=== PATIENT | female | born 1950 | race Caucasian/White ===

== ENCOUNTER 2020-01-04 17:07 | Outpatient (CLI) | payer MEDICARE, SELFPAY ==
--- NOTE | ~2020-01-04 | MM_ITS ---
EXAMINATION: MM screening tomy BI w chayo HISTORY: Screening mammogram, family history of breast cancer in her sister. History of right breast excisional biopsies TECHNIQUE: Craniocaudal and mediolateral oblique 3-D tomosynthesis images were obtained and synthetic 2-D images were generated. CAD analysis was submitted and interpreted. COMPARISON: 05/28/2016, 11/13/2013, 12/19/2012 BREAST PARENCHYMAL COMPOSITION: The breasts are heterogeneously dense, which may obscure small masses . FINDINGS: There is no evidence of suspicious mass, calcification, or architectural distortion to sugg est malignancy in either breast. There has been no suspicious interval change. IMPRESSION: 1. No mammographic evidence of malignancy. 2. Recommend routine screening mammography in one year. BI-RADS Category 1: Negative Reviewed, dictated and finalized at location A. ER UTILITY WORKER
== END 2020-01-04 17:08 | disposition home or self-care (01) ==
LOC: ANHIMG 17:15
PROVIDERS: PCP Internal Medicine; Visit Provider Obstetrics & Gynecology
DX: Z12.31 Encounter for screening mammogram for malignant neoplasm of breast (principal)
CPT/HCPCS: 77063; 77067

== ENCOUNTER 2020-05-27 20:15 | Observation (INO) | payer MEDICARE, SELFPAY ==
--- NOTE | ~2020-05-27 | XR_ITS ---
EXAMINATION: XR chest 1V DATE: 05/27/2020 22:35 INDICATION: Left arm tingling and numbness. TECHNIQUE: A single frontal view of the chest was obtained. COMPARISON: Chest 2 views 02/10/2015 FINDINGS: A calcified right lung nodule and calcified right hilar lymph nodes are consistent with old granulomatous disease. There is mild atelectasis at left lung base. No pleural effusion or pneumotho rax. The heart size is normal. IMPRESSION: 1. Mild atelectasis at left lung base. Reviewed, dictated and finalized at location A.
--- NOTE | ~2020-05-27 | CT_ITS ---
EXAMINATION: CT brain wo con DATE: 05/28/2020 00:37 INDICATION: Left arm tingling. Visual changes. Neck pain. TECHNIQUE: Computed tomography (CT) of the head was performed without intravenous contrast. Sagittal and coronal reconstructions were performed. The mA was adjusted according to patient size. Iterative reconstruction technique was employed. The dose-length product was 605.33 mGy-cm. COMPARISON: head CT dated 09/03/2006 FINDINGS: No acute intracranial hemorrhage, acute infarction or abnormal extra axial fluid collection. Ventricl es are normal and symmetric. No mass/mass effect. The orbits, paranasal sinuses and mastoid air cells are normal. IMPRESSION: 1. No acute intracranial process. Reviewed, dictated and finalized at location A.
--- NOTE | ~2020-05-27 | MR_ITS ---
EXAMINATION: MR brain/brain stem wo/w con DATE: 05/28/2020 16:33 INDICATION: Transient ischemic attack. Neck pain. Left arm tingling. TECHNIQUE: Magnetic resonance imaging (MRI) of the brain and brainstem was performed without and with 12 mL MultiHance intravenous contrast. Sequences included sagittal and axial T1-weighted FSE, axial diffusion-weighted FS EPI, axial T2*-weighted GRE, axial T2-weighted FLAIR Propeller, and axial T2-we ighted Propeller. Postcontrast sequences included axial and coronal T1-weighted FSE. Apparent diffusi on coefficient (ADC) maps were created. COMPARISON: Head CT 05/28/2020 FINDINGS: There is no intracranial hemorrhage, acute infarction, or abnormal intracranial mass lesion . The ventricles are normal in size. The paranasal sinuses are clear. The orbits are normal. The mast oid air cells are normal. IMPRESSION: 1. Normal brain. Reviewed, dictated and finalized at location A. IMPRESSION: 1. Normal brain.
--- NOTE | ~2020-05-27 | US_ITS ---
EXAMINATION: US carotid duplex BI DATE: 05/28/2020 16:52 INDICATION: Carotid bruit. TECHNIQUE: Grayscale, color Doppler, and pulsed Doppler images of the cervical carotid arteries were obtained. The degree of vessel stenosis is placed in one of the following categories: normal, <50%, 5 0-69%, >=70% but less than near-occlusion, near-occlusion, or total occlusion. Note that percent sten osis relative to normal distal artery lumen diameter is indirectly measured from velocity measurement s as described by Booker, et al. Radiology 2003; 229:340-346. COMPARISON: None. FINDINGS: RIGHT: The right common carotid artery (CCA) peak systolic velocity (PSV) is 75 cm/s. The right internal car otid artery (ICA) PSV is 85 cm/s. The right ICA end-diastolic velocity (EDV) is 27 cm/s. The right IC A/CCA PSV ratio is 1.1. Grayscale and color Doppler images yield an estimate of <50% diameter reducti on from plaque in the ICA. There is antegrade flow in the right vertebral artery. LEFT: The left CCA PSV is 78 cm/s. The left ICA PSV is 92 cm/s. The left ICA EDV is 26 cm/s. The left ICA/C CA PSV ratio is 1.2. Grayscale and color Doppler images yield an estimate of <50% diameter reduction from plaque in the ICA. There is antegrade flow in the left vertebral artery. IMPRESSION: 1. <50% stenosis in the right internal carotid artery. 2. <50% stenosis in the left internal carotid artery. Reviewed, dictated and finalized at location A.
[2020-05-27 20:51] VITALS: BP 187/73; PULSE 58; RESP 18; TEMP 37.1; O2SAT 98
--- NOTE | 2020-05-27 20:57 | ECG_ITS ---
Measurements Intervals [place] Rate: 55 P: 69 RI: 160 QRS: 16 QRSD: 96 T: 47 QT: 430 QTc: 413 Interpretive Statements SINUS BRADYCARDIA RSR' IN V1 OR V2, CONSIDER RIGHT VENTRICULAR HYPERTROPHY OR RIGHT VCD BASELINE ARTIFACT- I, III, AVR, AVL BORDERLINE ECG Electronically Signed On 05-28-2020 7:02:41 CDT by Jensen Baldwin D.O.
[2020-05-27 21:15] LABS: Basophils Absolute Auto 0.1 K/mm3 (0.0-0.1); Basophils Percent Auto 0.7 % (0.2-1.2); Eosinophils Absolute Auto 0.3 K/mm3 (0-0.3); Eosinophils Percent Auto 4.2 % (0-4.4); Hematocrit 36.3 % (37.0-47.0); Hemoglobin 11.9 g/dL (12.0-15.0); Immature Granulocyte Absolute 0.01 K/mm3 (0.00-0.031); Immature Granulocyte Percent A 0.1 % (0-0.5); Lymphocytes Absolute Auto 2.18 K/mm3 (0.9-3.2); Lymphocytes Percent Auto 32.3 % (18.3-44.2); Mean Corpuscular HGB Conc 32.8 g/dl (32-36); Mean Corpuscular Hemoglobin 31.7 pg (26-34); Mean Corpuscular Volume 96.8 fl (80-100); Mean Platelet Volume 9.9 fl (7.4-10.4); Monocytes Absolute Auto 0.4 K/mm3 (0.1-0.6); Monocytes Percent Auto 5.6 % (2.6-8.5); Neutrophils Absolute Auto 3.8 K/mm3 (1.3-6.7); Neutrophils Percent Auto 57.1 % (45.5-73.1); Platelet Count Result 214 k/mm3 (150-375); Red Blood Count 3.75 M/mm3 (4.2-5.4); Red Cell Distribution Width 12.4 % (11.5-14.5); White Blood Count 6.7 K/mm3 (4.5-10.0)
[2020-05-27 21:24] LABS: INR 0.9; Partial Thromboplastin Time 26.8 SECONDS (22.3-36.8); Prothrombin Time 12.1 Seconds (11.1-14.7)
[2020-05-27 21:26] LABS: Blood Urea Nitrogen 23 mg/dL (7-17); Calcium 8.9 mg/dL (8.4-10.2); Carbon Dioxide 26 mmol/L (22-30); Chloride 104 mmol/L (98-107); Estimated Glomerular Filt Rate > 60; Glucose 125 mg/dL (65-105); Potassium 3.6 mmol/L (3.4-5.0); Sodium 137 mmol/L (137-145)
[2020-05-27 21:38] LABS: Troponin I < 0.012 ng/mL (0.000-0.034)
--- NOTE | 2020-05-27 23:38 | ED.NEUROSD ---
HPI - Neuro Symptoms/Deficit General Chief Complaint: Neuro Symptoms/Deficit Stated Complaint: cva? 2-3 days ago Time Seen by Provider: 05/27/20 23:23 Source: patient Mode of arrival: ambulatory Limitations: no limitations History of Present Illness HPI Narrative: This patient is a 69 year old [place] female who presents for evaluation of left arm tingling. Patient states 2 days ago she had an episode in which she states her vision went black and she felt like she was going to pass out. She also reports she had neck pain and left arm tingling. She reports she has no symptoms now, but She will intermittently get left arm tingling. She denies focal weakness, chest pain, sob or dizziness. Today she was evaluated by some one from her insurance company who told her she had carotid bruits and peripheral vascular disease, so her PCP recommended she come to ER. She denies history of heart disease or stroke in the past. Onset (ago): day(s) (2) Related Data Allergies Allergy/AdvReac Type Severity Reaction Status Date / Time iodine Allergy Unknown Verified 06/28/15 11:05 Review of Systems Review of Systems: All systems reviewed & are unremarkable except as noted in HPI and below Constitutional: Constitutional: Denies chills and Denies fever(s) Eyes: Eyes: Reports change in vision and Reports loss of vision Cardiovascular: Cardiovascular: Denies chest pain and Denies rapid heart rate Respiratory: Respiratory: Denies cough, Denies dyspnea and Denies wheezing Gastrointestinal: Gastrointestinal: Denies abdominal pain, Denies diarrhea, Denies nausea and Denies vomiting Neurologic: Reports numbness (left arm tingling) PMFSH Past Medical History Medical History (Updated 05/28/20 @ 05:48 by Talisha Anglin MD) Anxiety Hyperlipidemia Hypertension Surgical History Surgical History (Updated 05/27/20 @ 23:40 by Talisha Anglin MD) Hx of eye surgery Family History Family History (Updated 05/28/20 @ 03:24 by Mindi Diaz RN) Other Unknown family medical history Social History Social History Smoking status: Never smoker Alcohol intake: current Drinks per week: 7 Substance use: never Gender identity (if verbalized by the patient): Female Spiritual care concerns: No Exam Const: General: no acute distress and alert Orientation/consciousness: patient oriented x3 HENMT: Head: normocephalic and atraumatic Face and sinus: sinuses nontender and face symmetric Mouth: Yes Normal oral and palatal mucosa present, Yes lip normal and Yes oropharynx normal Throat: posterior oropharynx normal, tonsils normal and uvula midline Eyes: Pupils: Equal, round and reactive pupils present EOM: EOMs intact bilaterally Neck: Neck: no lymphadenopathy Other: bilateral carotid bruits Resp: Effort & Inspection: normal respiratory effort and no retractions Auscultation: clear to auscultation bilaterally Cardio: Rate: regular rate Rhythm: regular rhythm Heart sounds: no murmurs GI: GI Palp: Yes Soft to palpation, No Tenderness to palpation present (GI), No Guarding due to palpation present (GI) and No Rigid due to palpation : General: Yes no CVA tenderness Skin: General skin exam: normal color Rashes: no rashes Neuro: General: patient oriented x3, moves all extremities, no meningeal signs, no focal motor deficits and CN's II-XI intact bilaterally Speech: normal speech Extrem: General: no pedal edema Course Reevaluation(s) Reevaluation #1: Patient understands she will be admitted for further evaluation. Date: 05/28/20 Time: 01:50 Consultations Consultation #1: Dr. ramos accepts patient to tele for evaluation of symptoms. She request patient be given full dose aspirin Date: 05/28/20 Time: 01:50 Vital Signs Vital signs: Vital Signs Temperature 98.7 F 05/27/20 20:51 Pulse Rate 58 L 05/27/20 20:51 Respiratory Rate 18 05/27/20 20:51 Blood Pressure 187/73 H 05/27/20 20:51 Pulse O
[2020-05-27 23:42] LABS: Glucose Point of Care 107 (65-105)
[2020-05-28] VITALS (12 sets, daily range): BP systolic 130–188; BP diastolic 49–87; PULSE 52–76; RESP 18; TEMP 36.3–36.8; O2SAT 98–100; BMI 25.6
--- NOTE | 2020-05-28 00:18 | PC.NURSE ---
Pt to CT at this time.
[2020-05-28] MEDS: ASPIRIN 81 MG CHEWABLE TABLET 324 MG PO (02:24)
--- NOTE | 2020-05-28 02:59 | ADMGEN ---
This patient, Cecelia Peña, was admitted to [facility] Surg Room 306-01. Patient/family oriented to hospital policies and general routines including ID bracelet, bed and alarms, visiting hours, pain management, procedures, bathroom and other care routines, personal items, smoking policy, room service/diet, and visiting hours. Valuables list has been completed. Information on how to activate the Rapid Response Team has been discussed. Patient/Family are encouraged to report perceived risks to care and to ask questions if they do not understand what they are told or what they should do.
[2020-05-28 09:14] LABS: Glucose Point of Care 92 (65-105)
[2020-05-28] MEDS: estradioL 1 MG TABLET PO (10:54)
[2020-05-28] MEDS: METOPROLOL TARTRATE 50 MG TAB PO (10:54)
[2020-05-28] MEDS: ATORVASTATIN 10 MG TABLET PO (10:55)
[2020-05-28] MEDS: LORazepam 0.5 MG TABLET PO (10:59)
--- NOTE | 2020-05-28 13:14 | PM.IMHP ---
H&P: HPI History of Present Illness Chief complaint: Left arm numbness Narrative: Date of Service 05/28/20 1230 The supervising physician for this history and physical is Dr Marques. Ms. Peña is a 69yo F with history of hypertension, hyperlipidemia, GERD, and anxiety presented to the ED at the instruction of a home health nurse due to multiple vague symptoms. Patient reports a recent near syncopal episode 2 days ago where she felt lightheaded but did not pass out. She also describes her left arm feeling heavy intermittently over the last few days, resolved at this time. She describes that a healthcare provider from their insurance company came to the house for wellness checks and given the symptoms above, directed her to proceed to the ED when he auscultated a bruit over her carotid artery. Patient tells me she feels okay today, but feels overwhelmed, anxious, and weak. She reports feeling nauseous this morning when she got up to walk but this resolved when she sat down to rest, no vomiting. She has a hard time describing what sounds to be palpitations, intermittent and she has noticed them for years and was evaluated with Holter monitor last year. She denies any chest pain, shortness of breath, cough, fevers or chills, sick contacts at home, or recent travel. She denies headache, speech change, difficulty ambulating. She is able to move her left arm spontaneously without difficulty. CT brain on arrival shows acute intracranial findings. She is admitted to observation for rule out CVA with orders for MRI brain, carotid Doppler, and neurology consultation. Review of Systems Review of Systems: Narrative: Twelve systems were reviewed with pertinent positives and negatives as per HPI. Except as documented, all other systems were reviewed and are negative. [facility] Past Medical History Medical History (Updated 05/28/20 @ 16:55 by Alma Ramon PA-C) Anxiety Bradycardia GERD (gastroesophageal reflux disease) Hyperlipidemia Hypertension Overactive bladder Surgical History Surgical History (Updated 05/28/20 @ 16:34 by Alma Ramon PA-C) H/O breast biopsy X3; 2013. Patient reports was benign. H/O: hysterectomy In her 20s H/O: knee surgery Left torn ACL repair 2017 History of appendectomy Around age 16 Hx of eye surgery Eyelid surgery 01/2020; patient cannot recall the name but notes that was not for cosmetic purposes, by what she describes may have been entropion vs ectropion correction? Family History Family History (Updated 05/28/20 @ 16:35 by Alma Ramon PA-C) Mother Diabetes mellitus CHF (congestive heart failure) Cancer Bone cancer Sibling Breast cancer Sister Other Unknown family medical history Social History Social History (Updated 05/28/20 @ 16:37 by Alma Ramon PA-C) Social History: Ms. Peña lives at home with her , Manas, in [place]. 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 She reports 5 drinks per week, usually wine. She reports never smoker. Denies other substance use. Her PCP is Dr Jeffries. Full code status. Smoking status: Never smoker Alcohol intake: current Drinks per week: 7 Substance use: never Gender identity (if verbalized by the patient): Female Spiritual care concerns: No Meds Home Medications and Allergies Home Medications Medication Instructions Recorded Confirmed Type aspirin [Adult Low Dose Aspirin] 81 mg PO DAILY 05/28/20 05/28/20 History atorvastatin 10 mg PO DAILY 05/28/20 05/28/20 History estradiol 1 mg PO DAILY 05/28/20 05/28/20 History lorazepam 0.5 mg PO Q8H PRN 05/28/20 05/28/20 History meloxicam 15 mg PO DAILY 05/28/20 05/28/20 History metoprolol tartrate 50 mg PO BID 05/28/20 05/28/20 History omeprazole 20 mg PO DAILY 05/28/20 05/28/20 History oxybutynin chloride 5 mg PO TID 05/28/20 05/28/20 History Allergies Allergy/AdvReac Type Severity Reaction Status Date / Time iodine All
[2020-05-28] MEDS: OXYBUTYNIN CHLORIDE 5 MG TABLET PO ×2 (13:35→17:44)
--- NOTE | 2020-05-28 16:25 | CONS_ITS ---
DATE OF CONSULTATION: HISTORY OF PRESENT ILLNESS: This 69-year-old lady has been admitted to [facility] through the emergency room for the complaint of tingling sensation in the left upper extremity of 48 hours duration in addition to the history of impending passing out and also neck pain. She gave no history of focal weakness otherwise. She was examined by the [facility] personnel, who told her that she has a carotid bruit and peripheral vascular disease, and she came to the emergency room. ALLERGIES: SHE IS ALLERGIC TO IODINE. PAST MEDICAL HISTORY: She has ongoing history of hyperlipidemia, hypertension, anxiety, history of eye surgery. SOCIAL HISTORY: She is a never smoker. Current drinker, 7 drinks per week. PHYSICAL EXAMINATION: GENERAL: Revealed her to be awake, alert, cooperative, in no obvious acute distress. HEENT: Head normocephalic with no cranial bruit. Ears, nose, throat examination normal. NECK: Supple with no cervical bruit. No thyromegaly. No lymphadenopathy. HEART: Regular. LUNGS: Clear. ABDOMEN: Soft. NEUROLOGICAL: She had normal mental status. Normal speech. Pupils round regular. Reyonlds of vision full. Extraocular movements full. Face symmetrical. Tongue midline. Motor examination revealed her to have no drift of 1 side or other side. Reflexes symmetrical. Plantars are downgoing. PHYSICAL EXAMINATION: VITAL SIGNS: Evaluation up until now included her to be afebrile, pulse 58, respirations 18, blood pressure 187/73, with repeat 176/87. LABORATORY DATA: CBC with WBC 6.7, hemoglobin 11.9, platelet 214. IMAGING DATA: Initial chest x-ray with mild atelectasis at the lung bases. CT scan of the brain was negative. EKG with bradycardia. IMPRESSION: The patient was admitted to the hospital with a transient ischemic attack. PLAN: Plan is to continue with the complete evaluation including MRI, Doppler study of the carotids, and if necessary echocardiogram as well. MARCUS ALVAREZ M.D. DINING ROOM MANAGER DINING ROOM MANAGER D I MT: Ib[place]
[2020-05-28] MEDS: ASPIRIN 81 MG CHEWABLE TABLET PO (17:44)
[2020-05-28] MEDS: CALCIUM CARBONATE (TUMS) 500 MG (200 MG ELEMENTAL) PO (17:46)
[2020-05-28 17:59] LABS: Glucose Point of Care 80 (65-105)
[2020-05-28] MEDS: METOPROLOL TARTRATE 25 MG TABLET PO (21:01)
[2020-05-28] MEDS: SENNA/DOCUSATE SODIUM TABLET 1 TAB PO (21:01)
[2020-05-28 22:24] LABS: Glucose Point of Care 110 (65-105)
[2020-05-29] VITALS: PULSE 61
[2020-05-29 04:00] VITALS: PULSE 64
[2020-05-29 05:33] VITALS: BP 148/57; PULSE 64; RESP 18; TEMP 36.4; O2SAT 96
--- NOTE | 2020-05-29 06:00 | ECHO_ITS ---
Patient Info Name: Cecelia Peña Age: 69 years : 1950 Gender: Female Ht: 62 in Wt: 140 lbs BSA: 1.68 m2 HR: 60 bpm BP: 134 / 62 mmHg Heart Rhythm: Bradycardia, Sinus Rhythm Technical Quality: Good Exam Date: 05/29/2020 11:14 AM Exam Location: [facility] Pulmonary Patient Status: Inpatient Admit Date: 05/28/2020 Staff Ordering Physician: Talisha Anglin MD Performance Improvement Analyst: Magdi Rivera RDCS Attending Provider: Alma Ramon PA-C Referring Physician: Derrek MAYS; Exam Type: CA echo doppler color flow Study Info Indications 435.9 - TIA Complete two-dimensional, color flow and Doppler transthoracic echocardiogram is performed. Strain analysis performed. History/Risk Factors Left sided numbness and chest heaviness; bradycardia. Summary 1. Normal left ventricular size with mild concentric hypertrophy. Good left ventricular systolic function with no segmental wall motion abnormalities. Ejection fraction 68%. Global longitudinal strain is minimally decreased at -17% consistent with possible mild early systolic dysfunction. Grade 1 diastolic dysfunction is present. 2. Trace mitral and tricuspid regurgitation. 3. The atrial septum appears intact. 4. No masses or thrombi seen. 5. Normal sinus rhythm. Left Ventricle Left ventricular chamber dimension is normal. Left ventricular systolic function is normal, estimated at 65-70%. There is mildly increased left ventricular wall thickness. Left ventricular septal wall motion is normal. The left ventricular diastolic function is grade I diastolic dysfunction. Global longitudinal strain is mildly elevated at 17 %. Right Ventricle Right ventricular chamber dimension is normal. Right ventricular systolic function is normal. Left Atria Left atrial chamber dimension is normal. Right Atria Right atrial chamber dimension is normal. Aortic Valve The aortic valve is trileaflet. There is no aortic valve sclerosis. There is no aortic valve stenosis. There is no aortic valve regurgitation. Pulmonic Valve The pulmonic valve is normal. There is no pulmonic valve stenosis. There is no pulmonic regurgitation. Mitral Valve The mitral valve has normal leaflets. There is no mitral valve stenosis. There is trace mitral valve regurgitation. Tricuspid Valve The tricuspid valve leaflets are normal. There is no significant tricuspid valve stenosis. There is trace tricuspid valve regurgitation. No pulmonary hypertension, estimated pulmonary arterial systolic pressure is 31 mmHg. Pericardium/Pleural The pericardium appears normal. There is no pericardial effusion. Inferior Vena Cava Normal inferior vena cava with >50% collapse upon inspiration consistent with Empty right atrial pressure, 5 mmHg. Aorta The aortic root size at the sinus of Valsalva is normal. The prox ascending aorta size is normal. Left Ventricular Outflow Tract Name Value Normal LVOT 2D LVOT Diameter 1.7 cm LVOT Doppler LVOT Peak Gradient 3 mmHg LVOT Mean Gradient 2 mmHg LVOT VTI
[2020-05-29 06:29] LABS: Basophils Percent Auto 0.5 % (0.2-1.2); Eosinophils Absolute Auto 0.2 K/mm3 (0-0.3); Eosinophils Percent Auto 3.6 % (0-4.4); Hematocrit 39.6 % (37.0-47.0); Hemoglobin 13.2 g/dL (12.0-15.0); Immature Granulocyte Absolute 0.02 K/mm3 (0.00-0.031); Immature Granulocyte Percent A 0.3 % (0-0.5); Lymphocytes Absolute Auto 2.16 K/mm3 (0.9-3.2); Lymphocytes Percent Auto 35.6 % (18.3-44.2); Mean Corpuscular HGB Conc 33.3 g/dl (32-36); Mean Corpuscular Volume 96.1 fl (80-100); Mean Platelet Volume 9.8 fl (7.4-10.4); Monocytes Absolute Auto 0.4 K/mm3 (0.1-0.6); Monocytes Percent Auto 5.8 % (2.6-8.5); Neutrophils Absolute Auto 3.3 K/mm3 (1.3-6.7); Neutrophils Percent Auto 54.2 % (45.5-73.1); Platelet Count Result 216 k/mm3 (150-375); Red Blood Count 4.12 M/mm3 (4.2-5.4); Red Cell Distribution Width 12.3 % (11.5-14.5); White Blood Count 6.1 K/mm3 (4.5-10.0)
[2020-05-29 06:45] LABS: Blood Urea Nitrogen 17 mg/dL (7-17); Calcium 8.8 mg/dL (8.4-10.2); Carbon Dioxide 29 mmol/L (22-30); Chloride 105 mmol/L (98-107); Estimated CRCL calculation 60 ml/min; Estimated Glomerular Filt Rate > 60; Glucose 85 mg/dL (65-105); Magnesium 1.8 mg/dL (1.6-2.3); Phosphorus 3.3 mg/dL (2.5-4.5); Potassium 4.1 mmol/L (3.4-5.0); Sodium 138 mmol/L (137-145)
[2020-05-29 08:00] VITALS: PULSE 61
[2020-05-29 08:46] LABS: Glucose Point of Care 96 (65-105)
[2020-05-29 08:50] VITALS: BP 134/62; PULSE 68
[2020-05-29 08:51] VITALS: PULSE 68
[2020-05-29] MEDS: ATORVASTATIN 10 MG TABLET PO (08:51)
[2020-05-29] MEDS: METOPROLOL TARTRATE 25 MG TABLET PO (08:51)
[2020-05-29] MEDS: estradioL 1 MG TABLET PO (08:51)
[2020-05-29] MEDS: OXYBUTYNIN CHLORIDE 5 MG TABLET PO ×2 (08:51→13:46)
[2020-05-29] MEDS: ASPIRIN 81 MG CHEWABLE TABLET PO (10:18)
--- NOTE | 2020-05-29 11:27 | WPDNEUROPN ---
Progress Note: A&P Additional Plan stable needs echo Review of Systems Review of Systems: All systems reviewed & are unremarkable except as noted in HPI and below Exam Const: General: no acute distress Limitations: no limitations HENMT: Head: normal to inspection Eyes: General: appearance normal, both eyes and all related structures Neck: Neck: full ROM Resp: Effort & Inspection: normal respiratory effort and able to speak in complete sentences Auscultation: clear to auscultation bilaterally Cardio: Rate: regular rate Rhythm: regular rhythm GI: Auscultation: normal bowel sounds Neuro: General: patient oriented x3, tone normal and moves all extremities Cranial nerves: Yes CN's II-XII intact bilaterally Cognition (Neuro): normal cognition Speech: normal speech Sensory Exam: normal sensation Psych: Appearance: grossly normal Objective Data Vital Signs Vital Signs: Vital Signs - 24 hr 05/28/20 12:00 05/28/20 14:00 05/28/20 16:00 Temperature 36.8 C Pulse Rate 57 L 52 L 76 Respiratory Rate 18 Blood Pressure 130/49 L Pulse Oximetry 98 05/28/20 20:00 05/28/20 21:01 05/28/20 22:00 Temperature 36.3 C L Pulse Rate 69 64 67 Respiratory Rate 18 Blood Pressure 158/84 H Pulse Oximetry 99 05/29/20 00:00 05/29/20 04:00 05/29/20 05:33 Temperature 36.4 C L Pulse Rate 61 64 64 Respiratory Rate 18 Blood Pressure 148/57 H Pulse Oximetry 96 05/29/20 08:00 05/29/20 08:50 05/29/20 08:51 Temperature Pulse Rate 61 68 68 Respiratory Rate Blood Pressure 134/62 Pulse Oximetry Intake/Output Intake/Output: Intake & Output 05/26/20 05/27/20 05/28/20 05/29/20 23:59 23:59 23:59 23:59 Intake Total 1330 590 Output Total 2000 800 Balance -670 -210 Meds/Results Medications: Active Medications Generic Name Dose Route Start Last Admin Trade Name Freq PRN Reason Stop Dose Admin Aspirin 81 mg 05/28/20 08:00 05/29/20 10:18 Aspirin Chewable PO 81 mg DAILY@0800 RALPH Administration Atorvastatin Calcium 10 mg 05/28/20 09:40 05/29/20 08:51 Lipitor PO 10 mg DAILY RALPH Administration Calcium Carbonate 200 mg 05/28/20 17:37 05/28/20 17:46 Tums PO 200 mg Q6H PRN Administration Indigestion Estradiol 1 mg 05/28/20 09:40 05/29/20 08:51 Estrace PO 1 mg DAILY RALPH Administration Lorazepam 0.5 mg 05/28/20 09:37 05/28/20 10:59 Ativan Tablet PO 0.5 mg Q8H PRN Administration Anxiety Metoprolol Tartrate 25 mg 05/28/20 21:00 05/29/20 08:51 Lopressor PO 25 mg Q12HR RALPH Administration Ondansetron HCl 4 mg 05/28/20 01:52 Zofran Inj IV PUSH Q4H PRN Nausea Oxybutynin Chloride 5 mg 05/28/20 13:00 05/29/20 08:51 Ditropan PO 5 mg TID RALPH Administration Polyethylene Glycol 17 gm 05/28/20 17:46 Miralax PO QAM PRN Constipation Senna/Docusate Sodium 1 tab 05/28/20 17:50 05/28/20 21:02 Senokot S Tablet PO Not Given HS [facility] Radiology Results: ITS Impressions Chest X-Ray 05/27/20 22:37 IMPRESSION: 1. Mild atelectasis at left lung base. Head CT 05/28/20 07:11 IMPRESSION: 1. No acute intracranial process. Brain MRI 05/28/20 16:34 IMPRESSION: 1. Normal brain. Carotid Doppler Study 05/28/20 16:54 IMPRESSION: 1. <50% stenosis in the right internal carotid artery. 2. <50% stenosis in the left internal carotid artery. Labs Labs: Laboratory Results - last 24 hr 05/28/20 05/28/20 05/29/20 17:57 22:21 06:01 WBC 6.1 RBC 4.12 L Hgb 13.2 Hct 39.6 MCV 96.1 MCH 32.0 MCHC 33.3 RDW 12.3 Plt Count 216 MPV 9.8 Immature Gran % (Auto) 0.3 Neut % (Auto) 54.2 Lymph % (Auto) 35.6 Dolores % (Auto) 5.8 Eos % (Auto) 3.6 Baso % (Auto) 0.5 Lymph # (Auto) 2.16 Dolores # (Auto) 0.4 Eos # (Auto) 0.2 Baso # (Auto) 0.0 Abs Immat Gran (auto) 0.02 Absolute Neuts (aut
[2020-05-29 12:33] LABS: Glucose Point of Care 122 (65-105)
--- NOTE | 2020-05-29 13:46 | PM.DS ---
DS: Admitting Diagnosis Admitting Diagnosis Admitting Diagnosis: Paresthesia of skin DS: Discharge Diagnosis Discharge Diagnosis (1) Paresthesia of upper extremity: Code(s): R20.2 - Paresthesia of skin Status: Acute Assessment and Plan: Date of Service 05/29/20 Ms. Peña is a 69yo F with history of hypertension, anxiety, sinus bradycardia, and hyperlipidemia who presented to the ED at the instruction of a home health provider due to multiple vague symptoms. Patient reports a recent near syncopal episode 2 days ago where she felt lightheaded but did not pass out. She also describes her left arm feeling heavy intermittently over the last few days, resolved at this time. She describes that a healthcare provider from their insurance company came to the house for wellness checks and given the symptoms above, directed her to proceed to the ED when he auscultated a bruit over her carotid artery. She was admitted for observation and the workup was essentially unremarkable. MRI brain was normal, carotid dopplers demonstrated less than 50% stenosis of each the left and right internal carotid arteries. Echo cardiogram noted below. She does have some sinus bradycardia here on cardiac monitoring and her home metoprolol dose was decreased, follow up with PCP. She had no symptoms during this stay and was hemodynamically stable for discharge 05/29/20 with instructions to follow up with PCP. Patient has a difficult time describing vague symptoms but notes her left arm has felt heavy intermittently for the last several days. When asked if she is right-handed or left-handed, she reports both but writes with her right hand. Given this symptom and healthcare provider noted a carotid bruit yesterday during a wellness check, she was directed to the ED for evaluation. Neurology consulted by ED-appreciate recommendations. Continue ASA and statin therapy. CT brain and MRI brain are unremarkable. Carotid Dopplers normal. (2) Hypertension: Code(s): I10 - Essential (primary) hypertension Status: Chronic Assessment and Plan: Continue home metoprolol, decreased dose due to bradycardia. Follow up PCP. (3) Anxiety: Code(s): F41.9 - Anxiety disorder, unspecified Status: Chronic Assessment and Plan: Continue her home Ativan PRN. She is cooperative but anxious, has a hard time staying focused to answer questions. Admits she feels very overwhelmed. (4) Bradycardia: Code(s): R00.1 - Bradycardia, unspecified Status: Chronic Assessment and Plan: Documented in EMR dating back to at least 2014. She has difficulty describing what sounds to be palpitations which has been evaluated the by Cardiology and Holter monitor last year. Holter 12/2018 showed bradycardia, some intermittent sinus arrhythmia, and APCs. Troponin negative. Denies chest pain. No further syncopal or near syncopal episodes. Metoprolol decreased. (5) Hyperlipidemia: Code(s): E78.5 - Hyperlipidemia, unspecified Status: Chronic Assessment and Plan: Maintained on home statin therapy. DS: Summary Time Spent with Patient Time attestation: Total time spent providing and/or coordinating discharge services: 35 minutes Exam Narrative: Exam Narrative: Last Vital Signs Temp 97.5 F L 05/29/20 05:33 Pulse 68 05/29/20 08:51 Resp 18 05/29/20 05:33 BP 134/62 05/29/20 08:50 Pulse Ox 96 05/29/20 05:33 General: Well-developed, well-nourished female resting in bed in no acute distress, anxious but pleasant. HEENT: Normocephalic, atraumatic, EOMI, PERRL, oropharynx clear without erythema o
== END 2020-05-29 14:57 | disposition home or self-care (01) ==
LOC: ANHED 05-28 01:54 → ANH3MEDSUR 05-28 02:03
PROVIDERS: Physician Assistant; Admitting Provider Internal Medicine; Emergency Provider General Practice; PCP Internal Medicine; Visit Provider Hospitalist
DX: R20.2 Paresthesia of skin (principal); I10 Essential (primary) hypertension; F41.9 Anxiety disorder, unspecified; R00.1 Bradycardia, unspecified; I65.23 Occlusion and stenosis of bilateral carotid arteries; E78.5 Hyperlipidemia, unspecified; K21.9 Gastro-esophageal reflux disease without esophagitis; Z79.82 Long term (current) use of aspirin
CPT/HCPCS: 36415; 70450; 70553; 71045; 80048; 83735; 84100; 84484; 85025; 85610; 85730; 93005; 93306; 93880; 99285; A9270; A9577; G0378

== ENCOUNTER 2020-11-20 23:06 | Emergency (ER) | payer MEDICARE, SELFPAY ==
[2020-11-20 23:12] VITALS: BP 169/69; PULSE 59; RESP 18; TEMP 36.4; O2SAT 99
--- NOTE | 2020-11-20 23:37 | ED.ALLEREA ---
HPI - Allergic Reaction General Chief complaint: Allergic Reaction Stated complaint: allergic reaction Time Seen by Provider: 11/20/20 23:12 Source: patient Mode of arrival: ambulatory Limitations: no limitations History of Present Illness HPI narrative: Patient complaining of itchy rash on her chest and bilateral lower extremity started today after receiving a chemical injected into her IV for a cardiac stress test. Patient states that after she went home from the test she started to have itchiness in her chest and bilateral lower extremities and noticed a rash right after. Patient denies any lip, tongue or throat swelling. Patient denies any facial swelling does admit to facial flushing. Patient denies any extremity swelling. Patient denies any chest pain or shortness of breath. Related Data Home Medications Medication Instructions Recorded Confirmed aspirin [Adult Low Dose Aspirin] 81 mg PO DAILY 05/28/20 05/28/20 atorvastatin 10 mg PO DAILY 05/28/20 05/28/20 estradiol 1 mg PO DAILY 05/28/20 05/28/20 lorazepam 0.5 mg PO Q8H PRN 05/28/20 05/28/20 meloxicam 15 mg PO DAILY 05/28/20 05/28/20 omeprazole 20 mg PO DAILY 05/28/20 05/28/20 oxybutynin chloride 5 mg PO TID 05/28/20 05/28/20 Allergies Allergy/AdvReac Type Severity Reaction Status Date / Time iodine Allergy Unknown Hives Verified 11/20/20 23:17 Review of Systems Review of Systems: All systems reviewed & are unremarkable except as noted in HPI and below Constitutional: Constitutional: Denies body ache(s), Denies chills, Denies excessive sweating, Denies fatigue, Denies fever(s), Denies headache(s), Denies lethargy, Denies malaise, Denies weakness and Denies weight loss Eyes: Eyes: Denies blurry vision, Denies change in vision and Denies loss of vision ENT: Denies dizziness, Denies ear discharge, Denies headache(s), Denies lip swelling, Denies epistaxis, Denies nasal congestion, Denies neck pain, Denies throat swelling and Denies tongue swelling Cardiovascular: Cardiovascular: Denies chest pain, Denies chest pain at rest, Denies chest pain with activity, Denies diaphoresis, Denies rapid heart rate, Denies edema, Denies irregular heart rhythm, Denies lightheadedness, Denies palpitations, Denies dyspnea and Denies dyspnea on exertion Respiratory: Respiratory: Denies chest congestion, Denies cough, Denies hemoptysis, Denies dyspnea and Denies dyspnea on exertion Gastrointestinal: Gastrointestinal: Denies abdominal pain, Denies melena, Denies hematochezia, Denies diarrhea, Denies nausea, Denies vomiting and Denies hematemesis Musculoskeletal: Musculoskeletal: Denies abnormal gait, Denies deformity, Denies joint swelling, Denies limited range of motion, Denies neck pain and Denies numbness Neurologic: Denies Abnormal speech present, Denies abnormal gait, Denies confusion, Denies dizziness, Denies headache(s), Denies focal weakness, Denies loss of vision, Denies numbness, Denies Other visual disturbances, Denies Sensory deficit (Neuro) and Denies weakness Psychiatric: Psychiatric: Denies confusion, Denies depression, Denies auditory hallucinations, Denies homicidal ideation and Denies suicidal ideation Endocrine: Endocrine: Denies cold intolerance, Denies excessive sweating, Denies fatigue, Denies heat intolerance and Denies palpitations Hematologic/Lymphatic: Hematologic/Lymphatic: Denies easy bleeding and Denies easy bruising Allergic/Immunologic: Allergic/Immunologic: Denies lip swelling, Denies throat swelling and Denies tongue swelling PMFSH Past Medical History Medical History (Updated 11/20/20 @ 23:42 by Magdaleno Robledo MD) Anxiety Bradycardia GERD (gastroesophageal reflux disease) Hyperlipidemia Hypertension Overactive bladder Surgical History Surgical History (Updated 05/28/20 @ 16:34 by Alma Ramon PA-C) H/O breast biopsy X3; 2014. Patient reports was benign. H/O: hysterectomy In her 20s H/O: knee surgery Left torn ACL repair 2017 History
[2020-11-20] MEDS: diphenhydrAMINE HCl CAP 25 MG CAPSULE PO (23:40)
[2020-11-20] MEDS: FAMOTIDINE 20 MG TABLET 40 MG PO (23:41)
[2020-11-20] MEDS: predniSONE 20 MG TABLET 60 MG PO (23:41)
[2020-11-21 00:22] VITALS: BP 135/65; PULSE 49; RESP 16; O2SAT 95
== END 2020-11-21 00:25 | disposition home or self-care (01) ==
PROVIDERS: Emergency Provider Emergency Medicine; PCP Internal Medicine
DX: T78.40XA Allergy, unspecified, initial encounter (principal); Z79.82 Long term (current) use of aspirin; K21.9 Gastro-esophageal reflux disease without esophagitis; E78.5 Hyperlipidemia, unspecified; I10 Essential (primary) hypertension; N32.81 Overactive bladder
CPT/HCPCS: 99283; A9270; J7512

== ENCOUNTER 2021-03-18 09:26 | Emergency (ER) | payer MEDICARE, SELFPAY ==
[2021-03-18] VITALS (12 sets, daily range): BP systolic 138–187; BP diastolic 53–75; PULSE 47–78; RESP 13–20; TEMP 36.1; O2SAT 95–100
--- NOTE | ~2021-03-18 | XR_ITS ---
EXAMINATION: XR chest 2V EXAM DATE: 03/18/2021 11:16 INDICATION: Chest pain. TECHNIQUE: Frontal and lateral projections of the chest obtained and reviewed. Comparison is made to prior examination from 05/27/2020. FINDINGS: The lungs are clear. There are no pleural effusions. The cardiomediastinal silhouette is within normal limits. There is no pneumothorax suspected. The bones and soft tissues are unremarkab le. IMPRESSION: No acute cardiopulmonary findings. Reviewed, dictated and finalized at location B.
--- NOTE | 2021-03-18 10:23 | ECG_ITS ---
Measurements Intervals [place] Rate: 49 P: 51 NV: 168 QRS: 1 QRSD: 88 T: 26 QT: 441 QTc: 400 Interpretive Statements SINUS BRADYCARDIA INCOMPLETE RIGHT BUNDLE BRANCH BLOCK ABNORMAL ECG Electronically Signed On 03-18-2021 11:07:22 CDT by Jensen Baldwin D.O.
[2021-03-18 10:47] LABS: Basophils Absolute Auto 0.1 K/mm3 (0.0-0.1); Basophils Percent Auto 0.8 % (0.2-1.2); Eosinophils Absolute Auto 0.2 K/mm3 (0-0.3); Eosinophils Percent Auto 2.5 % (0-4.4); Hematocrit 38.8 % (37.0-47.0); Immature Granulocyte Absolute 0.01 K/mm3 (0.00-0.031); Immature Granulocyte Percent A 0.2 % (0-0.5); Lymphocytes Absolute Auto 2.19 K/mm3 (0.9-3.2); Lymphocytes Percent Auto 34.4 % (18.3-44.2); Mean Corpuscular HGB Conc 33.5 g/dl (32-36); Mean Corpuscular Hemoglobin 31.9 pg (26-34); Mean Corpuscular Volume 95.1 fl (80-100); Mean Platelet Volume 9.6 fl (7.4-10.4); Monocytes Absolute Auto 0.3 K/mm3 (0.1-0.6); Monocytes Percent Auto 5.3 % (2.6-8.5); Neutrophils Absolute Auto 3.6 K/mm3 (1.3-6.7); Neutrophils Percent Auto 56.8 % (45.5-73.1); Platelet Count Result 218 k/mm3 (150-375); Red Blood Count 4.08 M/mm3 (4.2-5.4); White Blood Count 6.4 K/mm3 (4.5-10.0)
[2021-03-18 10:58] LABS: Anion Gap 7 mmol/L (8-16); Blood Urea Nitrogen 17 mg/dL (7-17); Carbon Dioxide 26 mmol/L (22-30); Chloride 107 mmol/L (98-107); Estimated CRCL calculation 52 ml/min; Estimated Glomerular Filt Rate > 60; Glucose 89 mg/dL (65-105); Potassium 4.2 mmol/L (3.4-5.0); Sodium 140 mmol/L (137-145)
[2021-03-18 11:00] LABS: INR 0.9
[2021-03-18 11:01] LABS: Partial Thromboplastin Time 26.4 SECONDS (22.3-36.8)
[2021-03-18] MEDS: KETOROLAC 15 MG/ML VIAL (*BKC) IV PUSH (11:03)
[2021-03-18 11:09] LABS: Troponin I < 0.012 ng/mL (0.000-0.034)
--- NOTE | 2021-03-18 12:06 | ED.GENADULT ---
HPI - General Adult General Chief complaint: Unspecified Stated complaint: back, shoulder, arm pain Time Seen by Provider: 03/18/21 09:51 History of Present Illness HPI narrative: Patient is a 70-year-old female who presents ER after experiencing an odd sensation to her back/neck/shoulders/arms. Patient was standing at her sink tilting head backwards to drink some water when she felt a sensation in her upper back and down her arms. Her arms then felt heavy. It lasted for couple seconds. Now she just has aching of her muscles. This happened to her 1 time previously 1 month ago. She did not seek evaluation for this. She has no exertional chest pain or pressure. No focal weakness or numbness. She is without slurred speech. She has normal ability to walk. Has found no modifying factors. Related Data Home Medications Medication Instructions Recorded Confirmed aspirin [Adult Low Dose Aspirin] 81 mg PO DAILY 05/28/20 05/28/20 atorvastatin 10 mg PO DAILY 05/28/20 05/28/20 estradiol 1 mg PO DAILY 05/28/20 05/28/20 lorazepam 0.5 mg PO Q8H PRN 05/28/20 05/28/20 meloxicam 15 mg PO DAILY 05/28/20 05/28/20 omeprazole 20 mg PO DAILY 05/28/20 05/28/20 oxybutynin chloride 5 mg PO TID 05/28/20 05/28/20 Allergies Allergy/AdvReac Type Severity Reaction Status Date / Time iodine Allergy Unknown Hives Verified 03/18/21 11:01 iohexol Allergy Hives Verified 03/18/21 11:01 [From contrast - CT, X-RAY] Review of Systems Review of Systems: All systems reviewed & are unremarkable except as noted in HPI and below Constitutional: Constitutional: Denies chills and Denies fever(s) Cardiovascular: Cardiovascular: Denies chest pain, Denies rapid heart rate and Denies radiating jaw, neck or arm pain Respiratory: Respiratory: Denies cough and Denies dyspnea Musculoskeletal: Musculoskeletal: Reports back pain, Reports myalgias, Denies joint swelling, Denies muscle cramps and Denies muscle weakness Neurologic: Denies Abnormal speech present, Denies dizziness, Denies focal weakness and Denies numbness [facility] Past Medical History Medical History (Updated 03/18/21 @ 15:25 by Flynn Tabor MD) Anxiety Bradycardia GERD (gastroesophageal reflux disease) Hyperlipidemia Hypertension Overactive bladder Surgical History Surgical History (Updated 05/28/20 @ 16:34 by Alma Ramon PA-C) H/O breast biopsy X3; 2014. Patient reports was benign. H/O: hysterectomy In her 20s H/O: knee surgery Left torn ACL repair 2017 History of appendectomy Around age 16 Hx of eye surgery Eyelid surgery 01/2020; patient cannot recall the name but notes that was not for cosmetic purposes, by what she describes may have been entropion vs ectropion correction? Family History Family History (Updated 05/28/20 @ 16:35 by Alma Ramon PA-C) Mother Diabetes mellitus CHF (congestive heart failure) Cancer Bone cancer Sibling Breast cancer Sister Other Unknown family medical history Social History Social History (Updated 05/28/20 @ 16:37 by Alma Ramon PA-C) Social History: Ms. Peña lives at home with her , Manas, in [place]. 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 She reports 5 drinks per week, usually wine. She reports never smoker. Denies other substance use. Her PCP is Dr Jeffries. Full code status. Smoking status: Never smoker Alcohol intake: current Drinks per week: 7 Substance use: never Gender identity (if verbalized by the patient): Female Spiritual care concerns: No Exam Narrative: Exam Narrative: GENERAL: Well-appearing, well-nourished, and in no acute distress. HEAD: Normocephalic, atraumatic. NECK: Supple. Nontender, FROM. CHEST: Clear to auscultation. No respiratory distress. HEART: Bradycardic and regular. Normal peripheral pulses. ABDOMEN: Soft, nontender, nondistended. Back: No midline tenderness of thoracic or lumbar spine. Mild paraspinal a
[2021-03-18 14:13] LABS: Troponin I < 0.012 ng/mL (0.000-0.034)
== END 2021-03-18 15:36 | disposition home or self-care (01) ==
PROVIDERS: Emergency Provider Emergency Medicine; PCP Internal Medicine
DX: R25.2 Cramp and spasm (principal); R00.1 Bradycardia, unspecified; F41.9 Anxiety disorder, unspecified; K21.9 Gastro-esophageal reflux disease without esophagitis; E78.5 Hyperlipidemia, unspecified; I10 Essential (primary) hypertension; Z79.82 Long term (current) use of aspirin; N32.81 Overactive bladder; I45.10 Unspecified right bundle-branch block
CPT/HCPCS: 36415; 71046; 80048; 84484; 85025; 85610; 85730; 93005; 96374; 99284; J1885

== ENCOUNTER 2021-04-22 07:55 | Outpatient (CLI) | payer MEDICARE, SELFPAY ==
[2021-04-22 09:14] LABS: Basophils Absolute Auto 0.1 K/mm3 (0.0-0.1); Basophils Percent Auto 1.1 % (0.2-1.2); Eosinophils Absolute Auto 0.2 K/mm3 (0-0.3); Eosinophils Percent Auto 3.8 % (0-4.4); Hematocrit 38.4 % (37.0-47.0); Hemoglobin 12.7 g/dL (12.0-15.0); Immature Granulocyte Absolute 0.02 K/mm3 (0.00-0.031); Immature Granulocyte Percent A 0.4 % (0-0.5); Lymphocytes Absolute Auto 1.89 K/mm3 (0.9-3.2); Lymphocytes Percent Auto 34.2 % (18.3-44.2); Mean Corpuscular HGB Conc 33.1 g/dl (32-36); Mean Corpuscular Hemoglobin 31.1 pg (26-34); Mean Corpuscular Volume 94.1 fl (80-100); Mean Platelet Volume 9.9 fl (7.4-10.4); Monocytes Absolute Auto 0.3 K/mm3 (0.1-0.6); Monocytes Percent Auto 5.4 % (2.6-8.5); Neutrophils Percent Auto 55.1 % (45.5-73.1); Platelet Count Result 219 k/mm3 (150-375); Red Blood Count 4.08 M/mm3 (4.2-5.4); Red Cell Distribution Width 11.9 % (11.5-14.5); White Blood Count 5.5 K/mm3 (4.5-10.0)
[2021-04-22 09:19] LABS: Alanine Aminotransferase 19 U/L (4-35); Albumin Level 3.8 g/dL (3.5-5.1); Alkaline Phosphatase 57 U/L (38-126); Anion Gap 7 mmol/L (8-16); Aspartate Amino Transferase 24 U/L (14-36); Bilirubin,Total 0.4 mg/dL (0.2-1.3); Blood Urea Nitrogen 17 mg/dL (7-17); Calcium 8.9 mg/dL (8.4-10.2); Carbon Dioxide 29 mmol/L (22-30); Chloride 106 mmol/L (98-107); Estimated Glomerular Filt Rate > 60; Glucose 86 mg/dL (65-105); Potassium 4.2 mmol/L (3.4-5.0); Sodium 142 mmol/L (137-145)
[2021-04-22 09:55] LABS: Vitamin D 25 Hydroxy 57.4 ng/mL
== END 2021-04-22 07:56 | disposition home or self-care (01) ==
PROVIDERS: PCP Internal Medicine; Visit Provider Student in an Organized Health Care Education/Training Program
DX: E55.9 Vitamin D deficiency, unspecified (principal); I10 Essential (primary) hypertension
CPT/HCPCS: 36415; 80053; 82306; 84443; 85025

== ENCOUNTER 2022-09-03 16:06 | Outpatient (CLI) | payer MEDICARE, SELFPAY ==
--- NOTE | ~2022-09-03 | MM_ITS ---
EXAMINATION: MM screening tomy BI w chayo HISTORY: Screening TECHNIQUE: Craniocaudal and mediolateral oblique 3-D tomosynthesis images were obtained and synthetic 2-D images were generated. CAD analysis was submitted and interpreted. COMPARISON: Comparison to multiple prior studies sequentially, with oldest reviewed study dated 02/2013. BREAST PARENCHYMAL COMPOSITION: The breasts are heterogeneously dense, which may obscure small masses . FINDINGS: There is no evidence of suspicious mass, calcification, or architectural distortion to sugg est malignancy in either breast. There has been no suspicious interval change. IMPRESSION: 1. No mammographic evidence of malignancy. 2. Recommend routine screening mammography in one year. BI-RADS Category 1: Negative Reviewed, dictated and finalized at location A.
== END 2022-09-03 16:07 | disposition home or self-care (01) ==
PROVIDERS: PCP Internal Medicine; Visit Provider Internal Medicine
DX: Z12.31 Encounter for screening mammogram for malignant neoplasm of breast (principal)
CPT/HCPCS: 77063; 77067

== ENCOUNTER 2023-01-07 20:26 | Emergency (ER) | payer MEDICARE, SELFPAY ==
[2023-01-07 20:30] VITALS: BP 144/65; PULSE 74; RESP 18; TEMP 35.9; O2SAT 100
[2023-01-07 22:29] VITALS: BP 118/65; PULSE 60; RESP 16; O2SAT 97
--- NOTE | 2023-01-08 00:05 | PC.NURSE ---
patient states she is going to leave. patient airway intact. ambulatory with steady gait.
== END 2023-01-08 00:31 | disposition left against medical advice (07) ==
LOC: ANHED 01-08 00:08
PROVIDERS: PCP Internal Medicine
DX: R09.89 Other specified symptoms and signs involving the circulatory and respiratory systems (principal)
CPT/HCPCS: 99199

== ENCOUNTER 2023-02-18 16:28 | Outpatient (CLI) | payer MEDICARE, SELFPAY ==
--- NOTE | ~2023-02-18 | DEXA_ITS ---
Bone Density Report Name: JASON MOTA Age: 72 Sex: Female Ethnicity: White Date of : 1950 Indication: postmenopausal; screening for osteoporosis; parental hip fracture; hysterectomy; Referring Provider: PRECIOUS, HERIBERTO Perez Study: Bone densitometry was performed. Exam Date: February 18, 2023 Accession number: [id number] Bone Density: Region BMD T-score Z-score Classification AP Spine(L1, L2, L3) 1.199 1.6 3.8 Normal Femoral Neck (Left) 0.634 -1.9 -0.1 Osteopenia Total Hip (Left) 0.817 -1.0 0.5 Normal Femoral Neck (Right) 0.653 -1.8 0.1 Osteopenia Total Hip (Right) 0.765 -1.5 0.1 Osteopenia Total Hip Mean 0.791 -1.3 0.3 Osteopenia World Health Organization criteria for BMD impression classify patients as: Normal (T-score at or above -1.0), Osteopenia (T-score between -1.0 and -2.5), or Osteoporosis (T-score at or below -2.5). 10-year Fracture Risk(1): Major Osteoporotic Fracture 19% Hip Fracture 5.9% Reported Risk Factors: [place] (), Neck BMD=0.634, BMI=24.9, parental fracture (1) FRAX(R) Version 3.08. Fracture probability calculated for an untreated patient. Fracture probability may be lower if the patient has received treatment. Clinical Information Provided by Patient: Parent has had a hip fracture Has used the following medications: HRT (i.e. estrogen/hormone therapy), Vitamin D Has the following medical conditions: Hysterectomy Patient maximum height was 62 Menopause Age: 28 Drinks caffeinated beverages Onset of menses at age 12 Number of children 2 Impression: The patient has low bone mass, based on the Left Femoral Neck T-score. The patient has an estimated ten-year risk of hip fracture of 5.9% and an estimated ten-year risk of major fracture of 19%, based on the WHO FRAX algorithm. The patient has risk factors, including: parental hip fracture. Discussion: BONE DENSITY IS LOW AT ONE OR MORE SKELETAL SITES. THE PATIENT'S BMD AND CLINICAL RISK FACTORS CONTRIBUTE TO THIS PATIENT'S INCREASED RISK OF FRACTURE. This patient's lowest T-score is low at one or more skeletal sites. It meets the World Health Organization's (WHO) criteria for ?low bone mass? (T-score between -1.0 and -2.5). The patient's 10-year risk of hip fracture as calculated by FRAX exceeds the threshold where pharmacological therapy is recommended by the National Osteoporosis Foundation (NOF). However, all treatment decisions require clinical judgment and consideration of individual patient factors, including patient preferences, comorbidities, previous drug use, risk factors not captured in the FRAX model (e.g., frailty, falls, vitamin D deficiency, increased bone turnover, interval significant decline in bone density) and possible under or overestimation of fracture risk by FRAX. The mylene
== END 2023-02-18 16:29 | disposition home or self-care (01) ==
PROVIDERS: PCP Internal Medicine; Visit Provider Internal Medicine
DX: Z78.0 Asymptomatic menopausal state (principal); M85.852 Other specified disorders of bone density and structure, left thigh; M85.851 Other specified disorders of bone density and structure, right thigh
CPT/HCPCS: 77080

== ENCOUNTER 2025-04-30 14:18 | Outpatient (CLI) | payer MEDICARE, SELFPAY ==
--- NOTE | ~2025-04-30 | MM_ITS ---
EXAMINATION: MM diagnostic tomy BI w chayo HISTORY: Dermatitis of the left breast. Itching. TECHNIQUE: Additional 3-D tomosynthesis images of the breasts were performed and synthetic 2-D images were generated. CAD analysis was submitted and interpreted. COMPARISON: Comparison to multiple prior studies sequentially, with oldest reviewed study dated 05/28. BREAST PARENCHYMAL COMPOSITION: Dense: The breasts are heterogeneously dense, which may obscure small masses FINDINGS: There is a developing focal asymmetry with architectural distortion medially in the right b reast on CC view, middle third. There is asymmetry superiorly in the left breast on MLO view with pos sible architectural distortion. There are no suspicious calcifications. IMPRESSION: 1. Bilateral breast asymmetries with possible architectural distortion. 2. Recommend complete bilateral breast ultrasound. BI-RADS Category 0: Incomplete: Needs additional imaging evaluation. Reviewed, dictated and finalized at location A.
--- OUTSIDE RECORDS SUMMARY | 2025-04-30 15:29 | XMS_ITS | Clinical Summary ---
Author Organization [facility] [address] Address [address] [place] [address] Care Team Providers Care Supervisor Carbon Electrodes Name Role Phone Ernst Jeffries MD Primary Care Provider [phone] Allergies Active Allergy Reactions Criticality Noted Date Comments Iodine Shortness of breath High 03/07/2010 Iodine And Iodide Containing Products Unknown Medium Iohexol Rash Medium 11/25/2020 Medications alendronate (FOSAMAX) 70 mg tablet take 1 tablet (70MG) by oral route every week in the morning, at least 30 min before first food, beverage, or medication of day 0 2 Active Additional Information Patient not taking.Reported on 08/26/2022 omeprazole (PriLOSEC) 20 mg capsule take 1 capsule (20MG) by oral route every day before a meal 0 2 Active aspirin (ASPIRIN LOW DOSE) 81 mg tablet take 1 tablet (81MG) by oral route every day 0 2 Active vitamin E (AQUASOL E) 1,000 unit capsule take 1 Capsule by Oral route every day 0 2 Active naproxen (ALEVE) 220 mg tablet take 1 tablet by oral route every 12 hours as needed 0 0 4 Active estradiol (ESTRACE) 0.01 % (0.1 mg/gram) vaginal cream insert (1G) by vaginal route every week 0 0 4 Active tacrolimus (PROTOPIC) 0.1 % ointment apply by topical route 2 times every day a thin layer to the affected area(s) ; rub in gently and completely 0 0 4 Active metoprolol (LOPRESSOR) 25 mg tablet take 1 tablet by oral route 2 times every day 180 3 4 Active calcium carbonate (OS-MIL) 1,500 mg (600 mg of elemental calcium) tablet Take one by mouth one time per day 0 0 9 Active ascorbic acid (C-500) 500 mg tablet Take one by mouth one time per day 0 0 9 Active b complex vitamins (VITAMINS B COMPLEX) capsule Take one by mouth one time per day 0 0 9 Active oxybutynin XL (DITROPAN-XL) 5 mg 24 hr tablet Take 5 mg by mouth 3 (three) times a day Active atorvastatin (LIPITOR) 10 mg tablet Take 10 mg by mouth daily Active meloxicam (MOBIC) 15 mg tablet Take 15 mg by mouth daily Active LORazepam (ATIVAN) 0.5 mg tablet Take 0.5 mg by mouth every 6 (six) hours as needed for anxiety Active acetaminophen (TYLENOL) 325 mg tablet Take 650 mg by mouth every 8 (eight) hours as needed 2 Active amLODIPine (NORVASC) 5 mg tablet Take 1 tablet by mouth daily 2 Active lisinopriL (PRINIVIL,ZESTR IL) 10 mg tablet Take 2 tablets by mouth daily 2 Active triamcinolone (KENALOG) 0.1 % paste APPLY TO AFFECTED AREA NEEDED. DO NOT EXCEED FIVE TIMES PER DAY 2 Active valACYclovir (VALTREX) 1 gram tablet Take 2 tablets BID for 1 day 1 Active zinc sulfate (ZINCATE) 50 mg zinc (220 mg) capsule Take 220 mg by mouth daily Active fexofenadine (SUSAN) 180 mg tablet Take 180 mg by mouth daily Active fluticasone propionate (FLONASE) 50 mcg/actuation nasal sprayIndication s:Dysfunction of both eustachian tubes Administer 2 sprays into each nostril daily 1 each 3 2 Active Active Problems Problem Noted Date Diagnosed Date Other chest pain 10/04/2020 Essential hypertension 10/04/2020 Mixed hyperlipidemia 10/04/2020 Surgical History Surgery Date Site/Laterality Comments HYSTERECTOMY Hysterectomy OTHER SURGICAL HISTORY 11/15/2011 - 11/14/2012 R. breast lumpectomy CHOLECYSTECTOMY Medical History Medical History Date Comments Gastroesophageal reflux disease GERD Hx Other Medical Chronic Anxiety Osteoporosis Osteoporosis Hypertension Hyperlipidemia Allergic rhinitis Family History Medical History Relation Name Comments Other Brother 2 Ruptured artery ; Alzheimer's disease Father Alzheime r's Disease; Other Mother healthy; Relation Name Status Comments Brother 1 Alive Brother 2 Father Alive Mother Alive Social History Tobacco Use Types Packs/Day Years Used Date Smoking Tobacco: Never Smokeless Tobacco: Never Alcohol Use Standard Drinks/Week Comments No 0 (1 standard drink = 0.6 oz pur e alcohol) Comments Unknown Sex and Gender Information Value Date Recorded Sex Assigned at Not on file Legal 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 Gender Identity Not on file Sexual Orientation Not on file Obstetrics History Last Filed Vital Signs Vital Sign Reading Time Taken Comments Blood Pressure 130/60 10/04/2020 2:12 PM KETTLE COOK Pulse 70 10/04/2020 2:12 PM KETTLE COOK Temperature 36.2 C (97.1 F) 10/24/2020 11:06 AM KETTLE COOK Respiratory Rate 18 09/07/2022 8:54 AM CDT Oxygen Saturation 99% 11/29/2017 12:03 AM KETTLE COOK Inhaled Oxygen Concentration - - Weight 64 kg (141 lb) 09/07/2022 8:54 AM CDT Height 157.5 cm (5' 2) 09/07/2022 8:54 AM CDT Body Mass Index 25.79 09/07/2022 8:54 AM CDT Plan of Treatment Health Maintenance Due Date Last Done Comments Breast Cancer Screening-Mammogram 1950 Colon Cancer Screening-Colonoscopy 1950 Depression Screening 1950 Fall Risk Assessment 1950 Hepatitis C Screening 1950 Osteoporosis Screening-Bone Density Scan 1950 DTaP/Tdap/Td Vaccine (1 - Tdap) 1962 Hepatitis B Screening 1969 Zoster Vaccine (1 of 2) 2001 Well Visit 65+ 2016 Pneumococcal vaccine 65+ (2 of 2 - PPSV23) 10/03/2019 10/03/2018 Influenza Vaccine (Season Ended) 2025 08/22/2020, 10/05/2019, 10/03/2018, Additional history exists Insurance [employer] PPO [employer] Care Teams Supervisor [employer] Relationship Specialty Start Date End Date Ernst Jeffries MD [address] [place] [address] PCP - General Internal Medicine 10/04/20
--- OUTSIDE RECORDS SUMMARY | 2025-04-30 15:29 | XMS_ITS | Encounter Summary ---
Author Organization [facility] Care Team Providers Care Decorative Greens Cutter Name Role Phone Magdi Zambrano MD Primary Care Provider [phone] Ernst Jeffries MD Primary Care Provider [phone] Encounter Details Date Type Department Care Team (Latest Contact Info) Description 06/20/2017 Orders Only [facility] CLINCON[facility] ProviderMicheal MD [address] [place] [id number] Social History Tobacco Use Types Packs/Day Years Used Date Smoking Tobacco: Never Assessed Alcohol Use Standard Drinks/Week Comments No 0 (1 standard drink = 0.6 oz pur e alcohol) Comments Unknown Sex and Gender Information Value Date Recorded Sex Assigned at Not on file 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 Historical Provider Final Res ult documented in this encounter Visit Diagnoses Not on filedocumented in this encounter Care Teams Decorative Greens Cutter Relationship Specialty Start Date End Date Magdi Zambrano MD [address] [facility] [address] [place] [address] PCP - General 12/07/08 10/03/20 Ernst Jeffries MD [address] [place] [address] PCP - General Internal Medicine 10/04/20 documented as of this encounter
--- OUTSIDE RECORDS SUMMARY | 2025-04-30 15:29 | XMS_ITS | Encounter Summary ---
Author Organization [facility] Facility Care Team Providers Care Industrial Psychologist Name Role Phone Magdi Zambrano MD Primary Care Provider [phone] Ernst Jeffries MD Primary Care Provider [phone] Encounter Details Date Type Department Care Team (Latest Contact Info) Description 12/22/2016 Orders Only MMG CLINCONV ProviderMicheal MD [address] [place] [address] Social History Tobacco Use Types Packs/Day Years Used Date Smoking Tobacco: Never Assessed Alcohol Use Standard Drinks/Week Comments No 0 (1 standard drink = 0.6 oz pur e alcohol) Comments Unknown Sex and Gender Information Value Date Recorded Sex Assigned at Not on file Legal Sex Female 12:54 AM PROFESSIONAL SKATEBOARDER Gender Identity Not on file Sexual Orientation Not on file documented as of this encounter Plan of Treatment Not on file documented as of this encounter Procedures Procedure Name Priority Date/Time Associated Diagnosis Comments PROCEDURE - RESULT 12/22/2016 12 :00 AM PROFESSIONAL SKATEBOARDER documented in this encounter Results * PROCEDURE - RESULT (12/22/2016 12:00 AM PROFESSIONAL SKATEBOARDER) Narrative 12/22/2016 12:00 AM PROFESSIONAL SKATEBOARDER Ordered by an unspecified provider. Historical Provider Final Res ult documented in this encounter Visit Diagnoses Not on filedocumented in this encounter Care Teams Industrial Psychologist Relationship Specialty Start Date End Date Magdi Zambrano MD [address] [place] [address] PCP - General 12/07/08 10/03/20 Ernst Jeffries MD [address] [place] [address] PCP - General Internal Medicine 10/04/20 documented as of this encounter
--- OUTSIDE RECORDS SUMMARY | 2025-04-30 15:29 | XMS_ITS | CONTINUITY OF CARE DOCUMENT ---
Author Name lexx hallman Address Unknown Organization [facility] Address [address] [facility] [address] [place] [address] Phone [phone] Care Team Providers Care Pharmacy General Manager Name Role Phone Sandra BARKLEY, Higinio Unavailable ROSA M BARKLEY, ALVIN Unavailable [phone] PRECIOUS BARKLEY, HERIBERTO Unavailable [phone] INSURANCE PROVIDERS Payer name Policy type / Coverage type [place] red republican [place] Medicare [id number]
--- OUTSIDE RECORDS SUMMARY | 2025-04-30 15:29 | XMS_ITS | Encounter Summary ---
Author Organization [facility] Facility Care Team Providers Care Forensic Social Worker Name Role Phone Magdi Zambrano MD Primary Care Provider [phone] Ernst Jeffries MD Primary Care Provider [phone] Encounter Details Date Type Department Care Team (Latest Contact Info) Description 12/23/2016 Orders Only MMG CLINCONV ProviderMicheal MD [address] [place] [address] Social History Tobacco Use Types Packs/Day Years Used Date Smoking Tobacco: Never Assessed Alcohol Use Standard Drinks/Week Comments No 0 (1 standard drink = 0.6 oz pur e alcohol) Comments Unknown Sex and Gender Information Value Date Recorded Sex Assigned at Not on file Legal Sex Female 12:54 AM GENERAL I FARMWORKER Gender Identity Not on file Sexual Orientation Not on file documented as of this encounter Plan of Treatment Not on file documented as of this encounter Procedures Procedure Name Priority Date/Time Associated Diagnosis Comments PROCEDURE - RESULT 12/23/2016 12 :00 AM GENERAL I FARMWORKER documented in this encounter Results * PROCEDURE - RESULT (12/23/2016 12:00 AM GENERAL I FARMWORKER) Narrative 12/23/2016 12:00 AM GENERAL I FARMWORKER Ordered by an unspecified provider. Historical Provider Final Res ult documented in this encounter Visit Diagnoses Not on filedocumented in this encounter Care Teams Forensic Social Worker Relationship Specialty Start Date End Date Magdi Zambrano MD [address] [place] [address] PCP - General 12/07/08 10/03/20 Ernst Jeffries MD [address] [place] [address] PCP - General Internal Medicine 10/04/20 documented as of this encounter
--- OUTSIDE RECORDS SUMMARY | 2025-04-30 15:29 | XMS_ITS | Clinical Summary ---
[facility] Address [address] [place] [address] Phone Care Team Providers Care Market Research Analyst Name Role Phone Unavailable Primary Care Provider Unavailabl e Allergies Active Allergy Reactions Criticality Noted Date Comments Iodine Shortness of Breath/Wheezing High 010 Medications LOVASTATIN ORALIndications:Mammog raphic microcalcification Take by mouth. 30mg Active MULTIVITAMINS (MULTIVITAMIN ORAL)Indications:Mammo graphic microcalcification Take by mouth. Active ESTROGEN,SABINA/ME-TEST OSTERONE (ESTRATEST ORAL)Indications:Mammo graphic microcalcification Take by mouth. 1mg Active alprazolam (XANAX) 0.25 mg Oral tabletIndications:Mamm ographic microcalcification Take 1 Tab by mouth 3 times daily as needed for Anxiety. 10 Tab 0 0 Active Active Problems Patient Care Coordination No te Formatting of this note migh t be different from the original. Pt denies any family hx of ovarian ca Yana Major-Jessup [address] [facility] [address] [place] [address] Problem Noted Date Diagnosed Date Family history of breast cancer 03/08/2010 Overview (03/08/2010): Maternal cousin, 42 Family history of breast cancer in sister 2009 Overview (03/08/2010): Alem Castrejon, 42 Hyperlipidemia Family History Medical History Relation Name Comments Breast Cancer Maternal Cousin 40's Breast Cancer Sister 42, alem toure affer Relation Name Status Comments Maternal Cousin Sister Alive Social History Tobacco Use Types Packs/Day Years Used Date Smoking Tobacco: Never Alcohol Use Standard Drinks/Week Comments Yes 0 (1 standard drink = 0.6 oz pur e alcohol) Comments No Sex and Gender Information Value Date Recorded Sex Assigned at Not on file Legal Sex Female 5:52 AM TORCH BURNER Gender Identity Not on file Sexual Orientation Not on file Occupation Industry Job Start Date Job End Date Not on file Not on file Not on file Not on file Last Filed Vital Signs Vital Sign Reading Time Taken Comments Blood Pressure 132/76 03/07/2010 11:41 AM CDT Pulse - - Temperature - - Respiratory Rate - - Oxygen Saturation - - Inhaled Oxygen Concentration - - Weight 63.5 kg (140 lb) 04/21/2010 7:00 AM CDT Height 157.5 cm (5' 2) 03/07/2010 11:41 AM CDT Body Mass Index 25.61 03/07/2010 11:41 AM CDT Plan of Treatment Health Maintenance Due Date Last Done Comments DTAP/TDAP/TD VACCINES (1 - Tdap) 1970 COLORECTAL SCREENING 1996 Colorectal Cancer Screening 1996 FIT-DNA Q 3 years 1996 FIT/FOBT Q 1 year 1996 Flex Sig/CT Colonography Q 5 years 1996 PNEUMOCOCCAL VACCINE 50+ YEA RS (1 of 1 - PCV) 2001 ZOSTER VACCINE (1 of 2) 2001 BREAST CANCER SCREENING 02/25/2011 02/25/2010, 01/27 OSTEOPOROSIS SCREENING 2016 INFLUENZA VACCINE (#1) 2024 RSV VACCINE (60+ or ) (1 - 1-dose 75+ series) 2026 Procedures Procedure Name Priority Date/Time Associated Diagnosis Comments MAMMO DIAGNOSTIC UNI RIGHT W OR WO CAD Routine 02/25/2010 from Last 3 Months or Most Recently Relevant to Health Maintenance Results * MAMMO DIGITAL DIAG UNI RIGHT (02/25/2010) Anatomical Region Laterality Modality Breast Right Other us Abstract Provider MAMMO ORDERABLES Final Result from Last 3 Months or Most Recently Relevant to Health Maintenance Insurance [employer] PPO
--- OUTSIDE RECORDS SUMMARY | 2025-04-30 15:29 | XMS_ITS | Referral Summary ---
Author Organization [facility] [address] Address [address] [place] [address] Care Team Providers Care Electric Motor Control Assembler Name Role Phone Ernst Jeffries MD Primary Care Provider [phone] Allergies Active Allergy Reactions Criticality Noted Date [...] 10/04/2020 Essential hypertension 10/04/2020 Mixed hyperlipidemia 10/04/2020 Social History Tobacco Use Types Packs/Day Years Used Date Smoking Tobacco: Never Smokeless Tobacco: Never Alcohol Use Standard Drinks/Week Comments No 0 (1 standard drink = 0.6 oz pur e alcohol) Comments Unknown Sex and Gender Information Value Date Recorded Sex Assigned at Not on file Legal Sex Female 12:54 AM ENVELOPE FOLD OPERATOR Gender Identity Not on file Sexual Orientation Not on file Last Filed Vital Signs Vital Sign Reading Time Taken Comments Blood Pressure 130/60 10/04/2020 2:12 PM ENVELOPE FOLD OPERATOR Pulse 70 10/04/2020 2:12 PM ENVELOPE FOLD OPERATOR Temperature 36.2 C (97.1 F) 10/24/2020 11:06 AM ENVELOPE FOLD OPERATOR Respiratory Rate 18 09/07/2022 8:54 AM CDT Oxygen Saturation 99% 11/29/2017 12:03 AM ENVELOPE FOLD OPERATOR Inhaled Oxygen Concentration - - Weight 64 kg (141 lb) 09/07/2022 8:54 AM CDT Height 157.5 cm (5' 2) 09/07/2022 8:54 AM CDT Body Mass Index 25.79 09/07/2022 8:54 AM CDT Plan of Treatment Not on file Insurance [employer] MEDICARE PPO [employer] MEDICARE PPO [id number] [id number] Care Teams Electric Motor Control Assembler Relationship Specialty Start Date End Date Ernst Jeffries MD [address] [place] [address] PCP - General Internal Medicine 10/04/20
== END 2025-04-30 14:19 | disposition home or self-care (01) ==
PROVIDERS: PCP Registered Nurse; Visit Provider Internal Medicine
DX: R92.8 Other abnormal and inconclusive findings on diagnostic imaging of breast (principal); N64.59 Other signs and symptoms in breast; L98.8 Other specified disorders of the skin and subcutaneous tissue
CPT/HCPCS: 77062; 77066; G0279

== ENCOUNTER 2025-05-02 07:51 | Outpatient (CLI) | payer MEDICARE, SELFPAY ==
--- NOTE | ~2025-05-02 | US_ITS ---
US breast BI complete INDICATION: Follow-up breast asymmetries TECHNIQUE: Dedicated bilateral complete breast ultrasound including all 4 quadrants in the subareolar locations COMPARISON: Comparison to multiple prior studies sequentially, with oldest reviewed study dated 05/28. BREAST DENSITY: Not dense: There are scattered areas of fibroglandular density. FINDINGS: The breasts are composed of normal heterogeneous echotexture without focal solid or cystic mass. IMPRESSION: 1: Normal bilateral breast ultrasound. No sonographic correlate to bilateral breast asymmetries ident ified. Short-term follow-up recommended. BI-RADS CATEGORY 3-PROBABLY BENIGN FINDING RECOMMENDATION: 6 month follow up diagnostic bilateral mammogram recommended. Reviewed, dictated and finalized at location A. IMPRESSION: 1: Normal bilateral breast ultrasound. No sonographic correlate to bilateral br east asymmetries identified. Short-term follow-up recommended. BI-RADS CATEGORY 3-PROBABLY BENIGN FINDING RECOMMENDATION: 6 month follow up diagnostic bilateral mammogram recommended.
--- OUTSIDE RECORDS SUMMARY | 2025-05-02 07:57 | XMS_ITS | Encounter Summary ---
Author Organization [facility] Facility Care Team Providers Care Chainstitch Pants Outseamer Name Role Phone Magdi Zambrano MD Primary Care Provider [phone] Ernst Jeffries MD Primary Care Provider [phone] Encounter Details Date Type Department Care Team (Latest Contact Info) Description 06/20/2017 Orders Only MMG CLINCONV ProviderMicheal MD [address] [place] [address] Social History Tobacco Use Types Packs/Day Years Used Date Smoking Tobacco: Never Assessed Alcohol Use Standard Drinks/Week Comments No 0 (1 standard drink = 0.6 oz pur e alcohol) Comments Unknown Sex and Gender Information Value Date Recorded Sex Assigned at Not on file Legal Sex Female 12:54 AM PRINCIPAL CLERK Gender Identity Not on file Sexual Orientation [...] on filedocumented in this encounter Care Teams Chainstitch Pants Outseamer Relationship Specialty Start Date End Date Magdi Zambrano MD [address] [facility] [address] [place] [address] PCP - General 12/07/08 10/03/20 Ernst Jeffries MD [address] [place] [address] PCP - General Internal Medicine 10/04/20 documented as of this encounter
--- OUTSIDE RECORDS SUMMARY | 2025-05-02 07:57 | XMS_ITS | Encounter Summary ---
Author Organization [facility] Facility Care Team Providers Care Pre Sales Architect Name Role Phone Magdi Zambrano MD Primary Care Provider [phone] Ernst Jeffries MD Primary Care Provider [phone] Encounter Details Date Type Department Care Team (Latest Contact Info) Description 12/22/2016 Orders Only MMG CLINCONV ProviderMicheal MD [address] [place] [address] Social History Tobacco Use Types Packs/Day Years Used Date Smoking Tobacco: Never Assessed Alcohol Use Standard Drinks/Week Comments No 0 (1 standard drink = 0.6 oz pur e alcohol) Comments Unknown Sex and Gender Information Value Date Recorded Sex Assigned at Not on file Legal Sex Female 12:54 AM AP PROCESSOR Gender Identity Not on file Sexual Orientation Not on file documented as of this encounter Plan of Treatment Not on file documented as of this encounter Procedures Procedure Name Priority Date/Time Associated Diagnosis Comments PROCEDURE - RESULT 12/22/2016 12 :00 AM AP PROCESSOR documented in this encounter Results * PROCEDURE - RESULT (12/22/2016 12:00 AM AP PROCESSOR) Narrative 12/22/2016 12:00 AM AP PROCESSOR Ordered by an unspecified provider. Historical Provider Final Res ult documented in this encounter Visit Diagnoses Not on filedocumented in this encounter Care Teams Pre Sales Architect Relationship Specialty Start Date End Date Magdi Zambrano MD [address] [place] [address] PCP - General 12/07/08 10/03/20 Ernst Jeffries MD [address] [place] [address] PCP - General Internal Medicine 10/04/20 documented as of this encounter
--- OUTSIDE RECORDS SUMMARY | 2025-05-02 07:57 | XMS_ITS | CONTINUITY OF CARE DOCUMENT ---
Author Name lexx hallman Address Unknown Organization [facility] Address [address] [facility] [address] [place] [address] Phone [phone] Care Team Providers Care Driller Brake Lining Name Role Phone Sandra BARKLEY, Higinio Unavailable [phone] ROSA M BARKLEY, ALVIN Unavailable [phone] PRECIOUS BARKLEY, HERIBERTO Unavailable INSURANCE PROVIDERS Payer name Policy type / Coverage type [place] red constitution party [place] MEDICARE Medicare [id number]
--- OUTSIDE RECORDS SUMMARY | 2025-05-02 07:57 | XMS_ITS | Referral Summary ---
Author Organization [facility] [address] Address [address] [place] [address] Care Team Providers Care Security Trainer Name Role Phone Ernst Jeffries MD Primary Care Provider [phone] Allergies Active Allergy Reactions Criticality Noted Date [...] on file Legal Sex Female 12:54 AM BASKET BRAIDER Gender Identity Not on file Sexual Orientation Not on file Last Filed Vital Signs Vital Sign Reading Time Taken Comments Blood Pressure 130/60 10/04/2020 2:12 PM BASKET BRAIDER Pulse 70 10/04/2020 2:12 PM BASKET BRAIDER Temperature 36.2 C (97.1 F) 10/24/2020 11:06 AM BASKET BRAIDER Respiratory Rate 18 09/07/2022 8:54 AM CDT Oxygen Saturation 99% 11/29/2017 12:03 AM BASKET BRAIDER Inhaled Oxygen Concentration - - Weight 64 kg (141 lb) 09/07/2022 8:54 AM CDT Height 157.5 cm (5' 2) 09/07/2022 8:54 AM CDT Body Mass Index 25.79 09/07/2022 8:54 AM CDT Plan of Treatment Not on file Insurance [employer] MEDICARE PPO [employer] MEDICARE PPO [address] [id number] Care Teams Security Trainer Relationship Specialty Start Date End Date Ernst Jeffries MD [address] [place] [address] PCP - General Internal Medicine 10/04/20
--- OUTSIDE RECORDS SUMMARY | 2025-05-02 07:57 | XMS_ITS | Clinical Summary ---
[facility] [place] Address [address] [place] [address] Phone Care Team Providers Care Furniture Rental Consultant Name Role Phone Unavailable Primary Care Provider [...] any family hx of ovarian ca Yana Major-Pike [address] [facility] [address] [place] [address] Problem Noted Date Diagnosed Date Family history [...] on file Legal Sex Female 5:52 AM PASTE MIXER LIQUID Gender Identity Not on file Sexual Orientation [...] Most Recently Relevant to Health Maintenance Insurance [id number] PPO
--- OUTSIDE RECORDS SUMMARY | 2025-05-02 07:57 | XMS_ITS | Clinical Summary ---
Author Organization [facility] [address] Address [address] [place] [address] Care Team Providers Care Pit Recorder Name Role Phone Ernst Jeffries MD Primary Care Provider [phone] Allergies Active Allergy Reactions Criticality Noted Date [...] on file Legal Sex Female 12:54 AM TAVERN KEEPER Gender Identity Not on file Sexual Orientation Not on file Obstetrics History Last Filed Vital Signs Vital Sign Reading Time Taken Comments Blood Pressure 130/60 10/04/2020 2:12 PM TAVERN KEEPER Pulse 70 10/04/2020 2:12 PM TAVERN KEEPER Temperature 36.2 C (97.1 F) 10/24/2020 11:06 AM TAVERN KEEPER Respiratory Rate 18 09/07/2022 8:54 AM CDT Oxygen Saturation 99% 11/29/2017 12:03 AM TAVERN KEEPER Inhaled Oxygen Concentration - - Weight 64 [...] 08/22/2020, 10/05/2019, 10/03/2018, Additional history exists Insurance [employer] MEDICARE PPO [employer] PPO Care Teams Pit Recorder Relationship Specialty Start Date End Date Ernst Jeffries MD [address] [place] [address] PCP - General Internal Medicine 10/04/20
--- OUTSIDE RECORDS SUMMARY | 2025-05-02 07:57 | XMS_ITS | Encounter Summary ---
Author Organization [facility] Facility Care Team Providers Care Tram Operator Name Role Phone Magdi Zambrano MD Primary Care Provider [phone] Ernst Jeffries MD Primary Care Provider [phone] Encounter Details Date Type Department Care Team (Latest Contact Info) Description 12/23/2016 Orders Only MMG CLINCONV ProviderMicheal MD [address] [place] [address] Social History Tobacco Use Types Packs/Day Years Used Date Smoking Tobacco: Never Assessed Alcohol Use Standard Drinks/Week Comments No 0 (1 standard drink = 0.6 oz pur e alcohol) Comments Unknown Sex and Gender Information Value Date Recorded Sex Assigned at Not on file Legal Sex Female 12:54 AM STORE SALES LEADER Gender Identity Not on file Sexual Orientation Not on file documented as of this encounter Plan of Treatment Not on file documented as of this encounter Procedures Procedure Name Priority Date/Time Associated Diagnosis Comments PROCEDURE - RESULT 12/23/2016 12 :00 AM STORE SALES LEADER documented in this encounter Results * PROCEDURE - RESULT (12/23/2016 12:00 AM STORE SALES LEADER) Narrative 12/23/2016 12:00 AM STORE SALES LEADER Ordered by an unspecified provider. Historical Provider Final Res ult documented in this encounter Visit Diagnoses Not on filedocumented in this encounter Care Teams Tram Operator Relationship Specialty Start Date End Date Magdi Zambrano MD [address] [place] [address] PCP - General 12/07/08 10/03/20 Ernst Jeffries MD [address] [place] [address] PCP - General Internal Medicine 10/04/20 documented as of this encounter
== END 2025-05-02 07:52 | disposition home or self-care (01) ==
PROVIDERS: PCP Registered Nurse; Visit Provider Internal Medicine
DX: R92.8 Other abnormal and inconclusive findings on diagnostic imaging of breast (principal)
CPT/HCPCS: 76641